=== PATIENT | male | born 1960 | race Caucasian/White ===

== ENCOUNTER → 2023-01-31 | Outpatient (CLI) | payer OTHER | LOC: MRI 13:42 | PROVIDERS: ATTEND Neurological Surgery | DX: M47.26 Other spondylosis with radiculopathy, lumbar region (principal); M54.6 Pain in thoracic spine; M47.817 Spondylosis without myelopathy or radiculopathy, lumbosacral region; M47.815 Spondylosis without myelopathy or radiculopathy, thoracolumbar region; M51.34 Other intervertebral disc degeneration, thoracic region; Z95.0 Presence of cardiac pacemaker; Z98.1 Arthrodesis status | CPT/HCPCS: 71046; 72146; 72148 ==

== ENCOUNTER 2023-02-17 09:05 | Outpatient (CLI) | payer OTHER, MEDICAID | END 2023-02-17 09:06 | disposition home or self-care (01) | LOC: PET 09:05 | PROVIDERS: ATTEND Internal Medicine Critical Care Medicine | DX: R91.8 Other nonspecific abnormal finding of lung field (principal); C34.11 Malignant neoplasm of upper lobe, right bronchus or lung | CPT/HCPCS: 78815; A9552 ==

== ENCOUNTER 2023-02-23 06:52 | Day surgery (SDC) | payer OTHER, MEDICAID ==
[2023-02-22 14:26] VITALS: BMI 27.6
[2023-02-23] MEDS ORDERED: KETAMINE 100 MG/ML (5ML VIAL) ONE (09:10)
[2023-02-23] MEDS ORDERED: PROPOFOL 200 MG/20 ML VIAL ONE (09:14)
== END 2023-02-23 11:36 | disposition home or self-care (01) ==
LOC: SDC 06:52
PROVIDERS: ATTEND Internal Medicine Gastroenterology
PROC: 0DB18ZX Excision of Upper Esophagus, Via Natural or Artificial Opening Endoscopic, Diagnostic (ICD-10-PCS; principal; 2023-02-23)
PROC: 0DB38ZX Excision of Lower Esophagus, Via Natural or Artificial Opening Endoscopic, Diagnostic (ICD-10-PCS; 2023-02-23)
PROC: 0D757ZZ Dilation of Esophagus, Via Natural or Artificial Opening (ICD-10-PCS; 2023-02-23)
DX: D13.0 Benign neoplasm of esophagus (principal); K20.90 Esophagitis, unspecified without bleeding; R13.19 Other dysphagia; I50.9 Heart failure, unspecified; I25.2 Old myocardial infarction; F17.200 Nicotine dependence, unspecified, uncomplicated; Z79.82 Long term (current) use of aspirin; Z79.899 Other long term (current) drug therapy; Z88.5 Allergy status to narcotic agent; Z88.8 Allergy status to other drugs, medicaments and biological substances; Z95.810 Presence of automatic (implantable) cardiac defibrillator
CPT/HCPCS: 88305; 88312; J2704

== ENCOUNTER 2023-03-07 09:59 | Day surgery (SDC) | payer OTHER, MEDICAID ==
[2023-03-04 15:55] VITALS: BMI 27.1
[2023-03-07] MEDS ORDERED: Ipratropium/Albuterol 3 ML NEB ONE ×2 (11:24→14:35)
[2023-03-07] MEDS ORDERED: Fentanyl 250 MCG/5 ML VIAL ONE (12:39)
[2023-03-07] MEDS ORDERED: Lidocaine 1% PF 5 ML VIAL ONE (12:50)
[2023-03-07] MEDS ORDERED: PROPOFOL 200 MG/20 ML VIAL ONE (12:50)
[2023-03-07] MEDS ORDERED: Ondansetron PF 4 MG/2 ML Vial ONE (12:50)
[2023-03-07] MEDS ORDERED: Rocuronium Bromide 10 MG/ML (10ML VIAL) ONE (12:50)
[2023-03-07] MEDS ORDERED: Dexamethasone 20 MG/5 ML VIAL ONE (12:50)
[2023-03-07] MEDS ORDERED: SUGAMMADEX SODIUM 200 MG/2 ML VIAL ONE (14:04)
[2023-03-07] MEDS ORDERED: fentaNYL 50 mcg/mL 1 mL Vial ONE (14:28)
== END 2023-03-07 15:38 | disposition home or self-care (01) ==
LOC: SDC 09:59
PROVIDERS: ATTEND Internal Medicine
PROC: 07B74ZX Excision of Thorax Lymphatic, Percutaneous Endoscopic Approach, Diagnostic (ICD-10-PCS; principal; 2023-03-07)
PROC: 0B9C8ZX Drainage of Right Upper Lung Lobe, Via Natural or Artificial Opening Endoscopic, Diagnostic (ICD-10-PCS; 2023-03-07)
DX: R59.0 Localized enlarged lymph nodes (principal); R91.1 Solitary pulmonary nodule; F17.210 Nicotine dependence, cigarettes, uncomplicated; I25.2 Old myocardial infarction; Z79.01 Long term (current) use of anticoagulants; Z88.8 Allergy status to other drugs, medicaments and biological substances; Z79.82 Long term (current) use of aspirin; Z79.899 Other long term (current) drug therapy; Z88.5 Allergy status to narcotic agent; Z95.0 Presence of cardiac pacemaker
CPT/HCPCS: 31624; 31652; 87070; 87102; 87116; 87206 ×2; J3010; 88112; 88173; 88305; 88341; 88342; J1100; J2405; J2704; J7620

== ENCOUNTER 2023-05-04 10:01 | Day surgery (SDC) | payer OTHER ==
[2023-05-03 16:13] VITALS: BMI 30.7
[2023-05-04] MEDS ORDERED: fentaNYL 50 mcg/mL 1 mL Vial ONE (11:26)
[2023-05-04] MEDS ORDERED: Bupivacaine HCl 0.5%/Epinephrine 1:200,000/PF 30 ml Vial ONE (11:32)
[2023-05-04] MEDS ORDERED: Lidocaine 1% (PF) 30 ML VIAL ONE (11:32)
[2023-05-04] MEDS ORDERED: Sodium Chloride 0.9% 100 ML ONE (11:42)
[2023-05-04] MEDS ORDERED: CEFAZOLIN 2 GM VIAL ONE (11:42)
[2023-05-04] MEDS ORDERED: PHENYLEPHRINE-NS 100 MCG/ML 10 ML SYRINGE ONE (11:50)
[2023-05-04] MEDS ORDERED: Lidocaine 1% PF 5 ML VIAL ONE (11:50)
[2023-05-04] MEDS ORDERED: Dexamethasone 20 MG/5 ML VIAL ONE (11:50)
[2023-05-04] MEDS ORDERED: PROPOFOL 200 MG/20 ML VIAL ONE (11:50)
[2023-05-04] MEDS ORDERED: Ondansetron PF 4 MG/2 ML Vial ONE (11:50)
== END 2023-05-04 13:48 | disposition home or self-care (01) ==
LOC: SDC 10:01
PROVIDERS: ATTEND Thoracic Surgery (Cardiothoracic Vascular Surgery)
PROC: 0JH63WZ Insertion of Totally Implantable Vascular Access Device into Chest Subcutaneous Tissue and Fascia, Percutaneous Approach (ICD-10-PCS; principal; 2023-05-04)
DX: C34.90 Malignant neoplasm of unspecified part of unspecified bronchus or lung (principal); R91.8 Other nonspecific abnormal finding of lung field; R59.0 Localized enlarged lymph nodes; F41.9 Anxiety disorder, unspecified; I50.9 Heart failure, unspecified; I11.0 Hypertensive heart disease with heart failure; Z95.0 Presence of cardiac pacemaker; Z79.899 Other long term (current) drug therapy; F17.210 Nicotine dependence, cigarettes, uncomplicated; Z88.5 Allergy status to narcotic agent; Z88.8 Allergy status to other drugs, medicaments and biological substances
CPT/HCPCS: 36561; C1788; J3010; J1100; J1642; J2001; J2405; J2704; J3490

== ENCOUNTER → 2023-06-23 | Outpatient (CLI) | payer OTHER, MEDICAID | LOC: PET 09:30 | PROVIDERS: ATTEND Internal Medicine Hematology & Oncology | DX: C34.11 Malignant neoplasm of upper lobe, right bronchus or lung (principal); R91.8 Other nonspecific abnormal finding of lung field; R59.0 Localized enlarged lymph nodes | CPT/HCPCS: 78815; A9552 ==

== ENCOUNTER 2023-08-02 21:22 | Observation (INO) | payer OTHER ==
[2023-08-02] MEDS ORDERED: Ondansetron HCl/PF 4 MG/2 ML Vial IVP PRN (22:25)
[2023-08-02] MEDS ORDERED: fentaNYL 50 mcg/mL 1 mL Vial ONE (22:50)
[2023-08-02] MEDS ORDERED: Ondansetron PF 4 MG/2 ML Vial IVP PRN (23:20)
[2023-08-02] MEDS ORDERED: Acetaminophen 325 MG TAB PO PRN (23:20)
[2023-08-02] MEDS ORDERED: Ipratropium/Albuterol 3 ML NEB EZPAP PRN (23:22)
[2023-08-02] MEDS ORDERED: Pantoprazole 40 MG VIAL IVP SCH (23:30)
[2023-08-02] MEDS ORDERED: Piperacillin/Tazobactam 3.375 GM in Sodium Chloride 0.9% 100 ML IVPB SCH (23:59)
[2023-08-02] MEDS ORDERED: Sodium Chloride 0.9% 500 ML IV SCH (23:59)
[2023-08-03 00:03] VITALS: BMI 29.0
[2023-08-03] MEDS ORDERED: Piperacillin/Tazobactam 3.375 GM in Sodium Chloride 0.9% 100 ML IVPB SCH ×2 (00:15→06:00)
[2023-08-03] MEDS ORDERED: hydrALAZINE 20 MG/ML VIAL SLOW IVP PRN (02:39)
[2023-08-03] MEDS: Morphine 2 MG/ML VIAL SLOW IVP PRN ×2 (04:13→08:57)
[2023-08-03 05:52] LABS: #Monocytes 0.1 thou/uL (0.11-0.59); #Neutrophils 2.5 thou/uL (1.40-6.50); %Basophils 0.7 % (0.0-1.0); %Lymphocytes 16.3 % (21.0-51.0); %Monocytes 1.6 % (0.0-10.0); %Neutrophils 80.1 % (42.0-75.0); Hematocrit 34.5 % (42.0-52.0); Mean Corpuscular HGB CONC 34.8 g/dL (32.0-36.0); Mean Corpuscular Hemoglobin 32.9 pg (27.0-31.0); Mean Corpuscular Volume 94.5 fl (78.0-98.0); Mean Platelet Volume 11.5 fL (7.4-10.4); Platelet Count 121 10x3/uL (130-400); Red Blood Cell (RBC) Count 3.65 mill/uL (4.70-6.10); White Blood Cell (WBC) Count 3.1 10x3/uL (4.8-10.8)
[2023-08-03 06:21] LABS: Anion Gap 11 mmol/L (10-20); BUN (Urea Nitrogen) 22 mg/dL (8.4-25.7); Calc. Creatinine Clearance 101 mL/min (70-130); Calcium 9.1 mg/dL (7.8-10.44); Carbon Dioxide 29 mmol/L (23-31); Chloride 99 mmol/L (98-107); Estimated GFR 97; Glucose 141 mg/dL (80-115); Potassium 3.6 mmol/L (3.5-5.1); Sodium 135 mmol/L (136-145)
[2023-08-03] MEDS ORDERED: FLU VACC QS2023-24(6MOS UP)/PF 60 MCG/0.5 ML SYRINGE IM ONE (09:00)
[2023-08-03] MEDS ORDERED: Pantoprazole 40 MG VIAL IVP SCH (09:00)
[2023-08-03] MEDS ORDERED: MD-Gastroview 120 ML BOT ONE (11:41)
[2023-08-03 13:15] VITALS: BP 131/74; TEMP 98.1
== END 2023-08-03 13:25 | disposition home or self-care (01) ==
LOC: SDC/OP 21:22 → SJJU 22:40
PROVIDERS: ADMIT Internal Medicine; ATTEND Internal Medicine
DX: T18.128A Food in esophagus causing other injury, initial encounter (principal); I25.10 Atherosclerotic heart disease of native coronary artery without angina pectoris; I11.0 Hypertensive heart disease with heart failure; I50.9 Heart failure, unspecified; E78.5 Hyperlipidemia, unspecified; F41.9 Anxiety disorder, unspecified; F17.210 Nicotine dependence, cigarettes, uncomplicated; Z88.5 Allergy status to narcotic agent; Z88.8 Allergy status to other drugs, medicaments and biological substances; Z79.899 Other long term (current) drug therapy; Z95.810 Presence of automatic (implantable) cardiac defibrillator
CPT/HCPCS: 74220; 80048; 85025; 90686; G0008; J3010; 36415; 90471; C9113; J1100; J2272; J2405; J2543; J2704; J3490; J7030; Q9963

== ENCOUNTER 2023-08-10 08:45 | Outpatient (CLI) | payer OTHER, MEDICAID | END 2023-08-10 08:46 | LOC: PET 08:45 | PROVIDERS: ATTEND Internal Medicine Hematology & Oncology | DX: C34.11 Malignant neoplasm of upper lobe, right bronchus or lung (principal); S32.591D Other specified fracture of right pubis, subsequent encounter for fracture with routine healing; R94.8 Abnormal results of function studies of other organs and systems | CPT/HCPCS: 78815; A9552 ==

== ENCOUNTER 2024-02-28 06:40 | Day surgery (SDC) | payer OTHER, MEDICAID ==
[2024-02-24 12:56] VITALS: BMI 29.0
[2024-02-28] MEDS ORDERED: Lidocaine 1% PF 5 ML VIAL ONE (09:30)
[2024-02-28] MEDS ORDERED: PROPOFOL 20 ML ONE ×2 (09:30→09:46)
[2024-02-28] MEDS ORDERED: PHENYLEPHRINE-NS 100 MCG/ML 10 ML SYRINGE ONE (09:46)
== END 2024-02-28 10:45 | disposition home or self-care (01) ==
LOC: SDC 06:40
PROVIDERS: ATTEND Internal Medicine Gastroenterology
PROC: 0DB18ZX Excision of Upper Esophagus, Via Natural or Artificial Opening Endoscopic, Diagnostic (ICD-10-PCS; principal; 2024-02-28)
PROC: 0D738ZZ Dilation of Lower Esophagus, Via Natural or Artificial Opening Endoscopic (ICD-10-PCS; 2024-02-28)
DX: K22.2 Esophageal obstruction (principal); K22.10 Ulcer of esophagus without bleeding; K21.00 Gastro-esophageal reflux disease with esophagitis, without bleeding; R13.19 Other dysphagia; I11.0 Hypertensive heart disease with heart failure; I50.9 Heart failure, unspecified; E78.00 Pure hypercholesterolemia, unspecified; F41.9 Anxiety disorder, unspecified; F32.A Depression, unspecified; J44.9 Chronic obstructive pulmonary disease, unspecified; F17.200 Nicotine dependence, unspecified, uncomplicated; Z95.810 Presence of automatic (implantable) cardiac defibrillator; Z79.82 Long term (current) use of aspirin; Z88.5 Allergy status to narcotic agent; Z88.8 Allergy status to other drugs, medicaments and biological substances; Z79.899 Other long term (current) drug therapy
CPT/HCPCS: 88305; 88342; J2704

== ENCOUNTER 2024-07-02 14:53 | Outpatient (CLI) | payer MEDICARE, MEDICAID | END 2024-07-02 14:54 | disposition home or self-care (01) | LOC: BICRAD 14:53 | PROVIDERS: ATTEND Internal Medicine Hematology & Oncology | DX: C34.11 Malignant neoplasm of upper lobe, right bronchus or lung (principal); C79.9 Secondary malignant neoplasm of unspecified site | CPT/HCPCS: 71046; 80053; 84436; 84443 ==

== ENCOUNTER 2024-08-05 02:47 | Inpatient (IN) | payer OTHER, MEDICAID ==
[2024-08-05] MEDS ORDERED: Morphine 4 MG/ML VIAL ONE (03:41)
[2024-08-05 04:10] LABS: #Basophils Less than 0.03 10x3/uL (0.0-0.2); #Eosinophils Less than 0.03 10x3/uL (0.0-0.7); %Lymphocytes 14.2 % (21.0-51.0); %Monocytes 7.4 % (0.0-10.0); %Neutrophils 77.2 % (42.0-75.0); Hematocrit 26.9 % (42.0-52.0); Hemoglobin 8.5 g/dL (14.0-18.0); Mean Corpuscular HGB CONC 31.6 g/dL (32.0-36.0); Mean Corpuscular Hemoglobin 30.4 pg (27.0-31.0); Mean Corpuscular Volume 96.1 fL (78.0-98.0); Mean Platelet Volume 9.3 fL (7.4-10.4); Platelet Count 59 10x3/uL (130-400); RBC Distribution Width 17.4 % (11.5-14.5)
[2024-08-05 04:16] LABS: INR-International Normal Ratio 1.3; PTT 37.5 sec (22.9-36.1); Prothrombin Time 16.5 sec (12.0-14.7)
[2024-08-05 04:23] LABS: ALT (SGPT) 52 U/L (8-55); AST (SGOT) 155 U/L (5-34); Albumin 2.6 g/dL (3.4-4.8); Alkaline Phosphatase 171 U/L (40-110); Anion Gap 17 mmol/L (10-20); BUN (Urea Nitrogen) 35 mg/dL (8.4-25.7); Bilirubin, Total 0.4 mg/dL (0.2-1.2); Calc. Creatinine Clearance 0 mL/min (70-130); Carbon Dioxide 29 mmol/L (23-31); Chloride 96 mmol/L (98-107); Estimated GFR 99; Globulin 3.5 g/dL (2.4-3.5); Glucose 127 mg/dL (80-115); Potassium 2.8 mmol/L (3.5-5.1); Protein, Total 6.1 g/dL (5.8-8.1); Sodium 139 mmol/L (136-145)
[2024-08-05] MEDS ORDERED: Morphine 2 MG/ML VIAL ONE (06:31)
[2024-08-05] MEDS ORDERED: Potassium Chloride 20 MEQ TAB ONE ×2 (06:41→06:45)
[2024-08-05] MEDS ORDERED: Iopamidol-370 76% 500 ML MDV (1 ML CHARGE) ONE (08:53)
[2024-08-05] MEDS ORDERED: Vancomycin 1 GM in Sodium Chloride 0.9% 250 ML 250 ML IVPB SCH (09:00)
[2024-08-05 09:01] LABS: Actual Bicarbonate (HCO3a) 31.9 mEq/L (22-28); Analyzer IN Cardio ER; Base Excess (BEa) 7.6 mEq/L (-2.0 to +3.0); CO2 Tension 43.6 mmHg (35.0-45.0); Calcium, Ionized (arterial) 1.06 mmol/L (1.12-1.30); Carboxyhemoglobin (COHb) 1.1 gm% (0.0-3.0); Hematocrit-ABG 33 % (42.0-52.0); Hemoglobin (Hb) 11.3 g/dL (14.0-18.0); Potassium - ABG Lab 3.04 mmol/L (3.70-5.30); pH, Arterial 7.482 (7.35-7.45)
[2024-08-05 09:16] LABS: Puncture Site Left Radial artery
[2024-08-05 10:51] LABS: Troponin I 0.036 ng/mL (< 0.028)
[2024-08-05] MEDS: Morphine 4 MG/ML VIAL SLOW IVP SCH (11:30)
[2024-08-05] MEDS: Sodium Chloride 0.9% 1,000 ML IV SCH (11:31)
[2024-08-05] MEDS: Pantoprazole 40 MG VIAL IVP SCH (11:56)
[2024-08-05] MEDS: Morphine 4 MG/ML VIAL SLOW IVP PRN (12:12)
[2024-08-05] MEDS ORDERED: Electrolyte Replacement Protocol 1 EACH FS SCH (12:30)
[2024-08-05] MEDS ORDERED: Electrolyte Replacement Protocol FS PRN (12:45)
[2024-08-05] MEDS: ALPRAZolam 0.5 MG TAB PO PRN (13:44)
[2024-08-05] MEDS: Cefepime 2 GM in Sodium Chloride 0.9% 100 ML IVPB SCH (13:45)
[2024-08-05] MEDS: Vancomycin (BATCH) 1.5 GM in Premix 1 BAG IVPB SCH ×2 (15:02)
[2024-08-05 17:17] LABS: Anion Gap 14 mmol/L (10-20); BUN (Urea Nitrogen) 30 mg/dL (8.4-25.7); Calc. Creatinine Clearance 97 mL/min (70-130); Calcium 8.3 mg/dL (7.8-10.44); Carbon Dioxide 29 mmol/L (23-31); Chloride 100 mmol/L (98-107); Estimated GFR 103; Glucose 105 mg/dL (80-115); Potassium 3.1 mmol/L (3.5-5.1); Sodium 140 mmol/L (136-145)
[2024-08-05] MEDS: Heparin 25,000 units/D5W 500 ML IV SCH (18:08)
[2024-08-05] MEDS: Polyethylene Glycol 3350 17 GM Packet PO SCH (19:59)
[2024-08-05] MEDS: Docusate 100 MG CAP PO SCH (19:59)
[2024-08-05] MEDS: Acetaminophen 325 MG TAB PO PRN (19:59)
[2024-08-05] MEDS: Midodrine HCl 5 MG TAB PO SCH (19:59)
[2024-08-05] MEDS: Albumin 25% 25 GM (100 mL) BOT IVPB SCH (19:59)
[2024-08-05] MEDS: Sacubitril 24MG/Valsartan 26 MG TAB PO SCH (21:54)
[2024-08-05] MEDS: Potassium Chloride 40 MEQ in Premix 1 BAG IVPB SCH (22:15)
[2024-08-05] MEDS: Vancomycin 1 GM in Premix 1 BAG IVPB SCH (22:43)
[2024-08-05] MEDS: Potassium Chloride 20 MEQ TAB PO SCH (23:33)
[2024-08-06 01:04] LABS: Potassium 4.1 mmol/L (3.5-5.1)
[2024-08-06] MEDS: Heparin 10,000 UNITS/ 10 ML VIAL SLOW IVP SCH (01:59)
[2024-08-06] MEDS: Morphine ER 30 MG TAB PO SCH ×2 (02:01→09:04)
[2024-08-06 06:36] VITALS: BMI 22.7
[2024-08-06 06:45] LABS: Hematocrit 24.1 % (42.0-52.0); Hemoglobin 7.3 g/dL (14.0-18.0); Mean Corpuscular HGB CONC 30.3 g/dL (32.0-36.0); Mean Corpuscular Hemoglobin 30.4 pg (27.0-31.0); Mean Corpuscular Volume 100.4 fL (78.0-98.0); Mean Platelet Volume 10.2 fL (7.4-10.4); Platelet Count 52 10x3/uL (130-400); RBC Distribution Width 17.3 % (11.5-14.5)
[2024-08-06 07:01] LABS: Vancomycin, Random 16.9 ug/mL (See Comment)
[2024-08-06 07:03] LABS: ALT (SGPT) 43 U/L (8-55); AST (SGOT) 101 U/L (5-34); Albumin 2.6 g/dL (3.4-4.8); Alkaline Phosphatase 164 U/L (40-110); Anion Gap 10 mmol/L (10-20); BUN (Urea Nitrogen) 24 mg/dL (8.4-25.7); Bilirubin, Total 0.5 mg/dL (0.2-1.2); Calc. Creatinine Clearance 104 mL/min (70-130); Calcium 8.1 mg/dL (7.8-10.44); Carbon Dioxide 31 mmol/L (23-31); Chloride 102 mmol/L (98-107); Estimated GFR 105; Glucose 126 mg/dL (80-115); Protein, Total 5.6 g/dL (5.8-8.1); Sodium 139 mmol/L (136-145)
[2024-08-06 07:15] LABS: Band 33 % (5-11); Lymphocytes 8 % (21-51); Metamyelocyte 12 % (0-0); Myelocyte 1 % (0-0); Neutrophil 47 % (42-75); Nucleated RBC (Manual Ct) 4 % (0); Platelet Adequacy Comment Platelets Decreased; Polychromasia SLIGHT = 2-3 cells HPF (0-2); Stomatocytes SLIGHT = 2-5 cells HPF (0-1)
[2024-08-06] MEDS: Atorvastatin Calcium 40 MG TAB PO SCH (07:49)
[2024-08-06] MEDS: Lidocaine 4% Patch TD SCH (07:55)
[2024-08-06] MEDS: Pantoprazole 40 MG VIAL IVP SCH (07:56)
[2024-08-06 08:09] LABS: PTT 182.1 sec (22.9-36.1)
[2024-08-06] MEDS ORDERED: Lidocaine 4% Patch TD SCH (09:00)
[2024-08-06] MEDS: Vancomycin (BATCH) 1.25 GM in Premix 1 BAG IVPB SCH (11:06)
[2024-08-06] MEDS: Morphine 4 MG/ML VIAL SLOW IVP PRN (11:06)
[2024-08-06 14:46] LABS: O2 Tension (PaO2), arterial 55.6 mmHg (> 80.0)
[2024-08-06] MEDS ORDERED: tiZANidine HCl 4 MG TAB PO PRN ×2 (15:18)
[2024-08-06] MEDS: ALPRAZolam 0.5 MG TAB PO SCH (15:25)
[2024-08-06] MEDS: tiZANidine HCl 4 MG TAB PO PRN (17:21)
[2024-08-06] MEDS: Transdermal Patch Removal TOP SCH (22:14)
[2024-08-06] MEDS: ALPRAZolam 1 MG TAB PO PRN (22:19)
[2024-08-07 04:10] LABS: Hematocrit 21.6 % (42.0-52.0); Hemoglobin 6.4 g/dL (14.0-18.0); Mean Corpuscular HGB CONC 29.6 g/dL (32.0-36.0); Mean Corpuscular Hemoglobin 30.6 pg (27.0-31.0); Mean Corpuscular Volume 103.3 fL (78.0-98.0); Mean Platelet Volume 10.2 fL (7.4-10.4); Platelet Count 46 10x3/uL (130-400); RBC Distribution Width 17.2 % (11.5-14.5); Red Blood Cell (RBC) Count 2.09 mill/uL (4.70-6.10)
[2024-08-07 04:27] LABS: ALT (SGPT) 37 U/L (8-55); AST (SGOT) 76 U/L (5-34); Albumin 2.2 g/dL (3.4-4.8); Alkaline Phosphatase 135 U/L (40-110); Anion Gap 10 mmol/L (10-20); BUN (Urea Nitrogen) 16 mg/dL (8.4-25.7); Bilirubin, Total 0.4 mg/dL (0.2-1.2); Calc. Creatinine Clearance 111 mL/min (70-130); Calcium 8.1 mg/dL (7.8-10.44); Carbon Dioxide 29 mmol/L (23-31); Chloride 105 mmol/L (98-107); Estimated GFR 107; Globulin 3.1 g/dL (2.4-3.5); Glucose 125 mg/dL (80-115); Magnesium 2.1 mg/dL (1.6-2.6); Potassium 4.2 mmol/L (3.5-5.1); Protein, Total 5.3 g/dL (5.8-8.1); Sodium 140 mmol/L (136-145)
[2024-08-07 04:55] LABS: Vancomycin, Random 35.3 ug/mL (See Comment)
[2024-08-07 05:07] LABS: Anisocytosis SLIGHT = 6-15 cells HPF (0-5); Band 33 % (5-11); Basophilic Stippling SLIGHT = 1-2 cells HPF (None Seen); Dohle Bodies SLIGHT; Elliptocytes SLIGHT = 2-5 cells HPF (0-1); Hypochromia SLIGHT = 6-15 cells HPF (0-5); Lymphocytes 10 % (21-51); Macrocytosis SLIGHT = 6-15 cells HPF (0-5); Metamyelocyte 5 % (0-0); Monocytes 1 % (0-10); Neutrophil 52 % (42-75); Nucleated RBC (Manual Ct) 3 % (0); Platelet Adequacy Comment Significant Decrease; Polychromasia SLIGHT = 2-3 cells HPF (0-2); Tear Drops SLIGHT = 2-5 cells HPF (0-1); Toxic Granulation MODERATE
[2024-08-07] MEDS: Venlafaxine XR 37.5 MG CAP PO SCH (09:01)
[2024-08-08 04:06] VITALS: TEMP 99.1
[2024-08-08] MEDS ORDERED: Lorazepam 2 MG/ML VIAL SLOW IVP PRN (08:45)
== END 2024-08-08 10:20 | disposition hospice, inpatient (51) | DRG 393 ==
LOC: ERS 02:47 → ERHOLD 07:21 → CCU 11:08
PROVIDERS: ADMIT Student in an Organized Health Care Education/Training Program; ATTEND Internal Medicine
PROC: 4A033R1 Measurement of Arterial Saturation, Peripheral, Percutaneous Approach (ICD-10-PCS; principal; 2024-08-05)
PROC: 5A0945A Assistance with Respiratory Ventilation, 24-96 Consecutive Hours, High Flow/Velocity Cannula (ICD-10-PCS; 2024-08-05)
PROC: 5A09357 Assistance with Respiratory Ventilation, Less than 24 Consecutive Hours, Continuous Positive Airway Pressure (ICD-10-PCS; 2024-08-06)
DX: K63.3 Ulcer of intestine (principal); I26.99 Other pulmonary embolism without acute cor pulmonale; J96.21 Acute and chronic respiratory failure with hypoxia; C34.90 Malignant neoplasm of unspecified part of unspecified bronchus or lung; C78.7 Secondary malignant neoplasm of liver and intrahepatic bile duct; I50.32 Chronic diastolic (congestive) heart failure; D61.818 Other pancytopenia; C34.91 Malignant neoplasm of unspecified part of right bronchus or lung; I25.10 Atherosclerotic heart disease of native coronary artery without angina pectoris; E78.5 Hyperlipidemia, unspecified; I25.5 Ischemic cardiomyopathy; F17.210 Nicotine dependence, cigarettes, uncomplicated; E87.6 Hypokalemia; Z66 Do not resuscitate; G89.3 Neoplasm related pain (acute) (chronic); R59.0 Localized enlarged lymph nodes; K52.9 Noninfective gastroenteritis and colitis, unspecified; Z51.5 Encounter for palliative care; K56.41 Fecal impaction; Z79.82 Long term (current) use of aspirin; Z79.899 Other long term (current) drug therapy; Z86.73 Personal history of transient ischemic attack (TIA), and cerebral infarction without residual deficits; Z88.5 Allergy status to narcotic agent; Z88.9 Allergy status to unspecified drugs, medicaments and biological substances; Z88.8 Allergy status to other drugs, medicaments and biological substances; Z95.810 Presence of automatic (implantable) cardiac defibrillator; Z95.5 Presence of coronary angioplasty implant and graft; Z98.890 Other specified postprocedural states
CPT/HCPCS: 36415; 36600; 71045; 71275; 74177; 80053; 80202; 82274; 82805; 83735; 84484; 85025; 85610; 85730; 86850; 86900; 86901; 93005; 93306; 93970; 94660; 96374; 96376; J0692; J1644; J2272; J2470; J3370; J3370-JW; J3480; J7030; P9047; Q9967

== ENCOUNTER 2024-08-08 10:26 | Inpatient (IN) | payer OTHER ==
[2024-08-08] MEDS: Lorazepam 2 MG/ML VIAL SLOW IVP PRN (10:45)
[2024-08-08] MEDS: Morphine 4 MG/ML VIAL SLOW IVP PRN (10:45)
== END 2024-08-08 12:31 | disposition expired | DRG 951 ==
LOC: CCU 10:26
PROVIDERS: ADMIT Internal Medicine Nephrology; ATTEND Internal Medicine Nephrology
DX: Z51.5 Encounter for palliative care (principal); I26.99 Other pulmonary embolism without acute cor pulmonale; I50.32 Chronic diastolic (congestive) heart failure; C34.90 Malignant neoplasm of unspecified part of unspecified bronchus or lung; C78.7 Secondary malignant neoplasm of liver and intrahepatic bile duct; I25.10 Atherosclerotic heart disease of native coronary artery without angina pectoris; Z86.73 Personal history of transient ischemic attack (TIA), and cerebral infarction without residual deficits; Z88.5 Allergy status to narcotic agent; E78.5 Hyperlipidemia, unspecified; I25.5 Ischemic cardiomyopathy; Z95.5 Presence of coronary angioplasty implant and graft; Z95.810 Presence of automatic (implantable) cardiac defibrillator; Z98.890 Other specified postprocedural states; E87.6 Hypokalemia; Z66 Do not resuscitate
CPT/HCPCS: J2060; J2272